=== PATIENT | male | born 1970 | race Two or more races ===

== ENCOUNTER 2020-07-09 01:19 | Inpatient (IN) | payer BC ==
[2020-07-09] VITALS (19 sets, daily range): BP systolic 112–147; BP diastolic 77–109
[~2020-07-09] VITALS: Ht 152.4 cm; Wt 57.1 kg
--- NOTE | 2020-07-09 01:31 | ED.ADGEN ---
General Adult EDM: Chief Complaint: CHEST PAIN HPI: HPI: Patient is a 49 year old brought in by EMS as a STEMI activation. Had "crushing" chest pain starting about 0045 which was about 5 minutes after intercourse with his . Patient states he was also diaphoretic at that time. Denies any use of erectile dysfunction medications, took ibuprofen today but otherwise takes no prescribed medications and has no known medical conditions. Patient never had this type of pain before. Denies any tobacco alcohol drug us e. Denies any history of GI bleeding. On EMS arrival. The pain as about 7-8 out of 10, given 324 mg aspirin and 1 nitroglycerin with pain improving to 5. Twelve-lead showed ST elevation in V3- V^ Review of Systems: Review of Systems: Constitutional: Denies fever or chills. [] Eyes: Denies change in visual acuity. [] HENT: Denies nasal congestion or sore throat. [] Respiratory: Denies cough or shortness of breath. [] Cardiovascular: Chest pain, denies lower extremity edema GI: Denies abdominal pain, nausea, vomiting, bloody stools or diarrhea. [] : Denies dysuria. [] Musculoskeletal: Denies back pain or joint pain. [] Integument: Denies rash. [] Neurologic: Denies headache, focal weakness or sensory changes. [] Endocrine: Denies polyuria or polydipsia. [] Lymphatic: Denies swollen glands. [] Psychiatric: Denies depression or anxiety. [] Current Medications: Current Medications Medications (Trade) Dose Ordered Sig/Gisell Start Time Stop Time Status Last Admin Dose Admin Acetaminophen (Tylenol) 650 mg PRN Q4HRS PRN 07/09/20 02:00 07/09/20 03:37 DC Diphenhydramine HCl (Benadryl) 50 mg STK-MED ONCE 07/09/20 01:54 07/09/20 01:55 DC Famotidine (Pepcid Vial) 20 mg STK-MED ONCE 07/09/20 01:54 07/09/20 01:54 DC Fentanyl Citrate (Fentanyl 2ml Vial) 50 mcg PRN Q1HR PRN 07/09/20 02:00 07/09/20 03:37 DC Heparin Sodium (Porcine) (Heparin Sodium) 4,000 unit 1X ONCE 07/09/20 02:00 07/09/20 02:01 DC 07/09/20 01:37 4,000 UNIT Heparin Sodium/ Dextrose 0 ml @ As Directed STK-MED ONCE 07/09/20 01:35 07/09/20 01:35 DC Heparin Sodium/ Sodium Chloride 1,000 ml @ As Directed STK-MED ONCE 07/09/20 01:35 07/09/20 01:36 DC Iodixanol (Visipaque 320) 100 ml STK-MED ONCE 07/09/20 01:35 07/09/20 01:35 DC Lidocaine HCl (Lidocaine 1% 20ml Vial) 20 ml STK-MED ONCE 07/09/20 01:35 07/09/20 01:35 DC Methylprednisolone Sodium Succinate (SOLU-Medrol 125MG VIAL) 125 mg STK-MED ONCE 07/09/20 01:54 07/09/20 01:54 DC Midazolam HCl (Versed) 2 mg STK-MED ONCE 07/09/20 01:54 07/09/20 01:54 DC Nitroglycerin (Nitrostat) 0.4 mg PRN Q5MIN PRN 07/09/20 02:00 07/09/20 03:38 DC 07/09/20 01:37 0.4 MG Ondansetron HCl (Zofran) 4 mg PRN Q8HRS PRN 07/09/20 02:00 07/10/20 01:59 Sodium Chloride 1,000 ml @ 75 mls/hr [id number] 07/09/20 02:00 07/09/20 03:38 DC 07/09/20 02:00 75 MLS/HR Allergies: Allergies: Allergies Coded Allergies Type Severity Reaction Last Updated Verified shrimp Allergy Severe 07/09/20 Yes Physical Exam: PE: Constitutional: Well developed, well nourished, no acute distress, non-toxic appearance. [] HENT: Normocephalic, atraumatic, bilateral external ears normal, oropharynx moist, no oral exudates, nose normal. [] Eyes: PERRLA, EOMI, conjunctiva normal, no discharge. [] Neck: Normal range of motion, no tenderness, supple, no stridor. [] Cardiovascular:Heart rate regular rhythm, no murmur [] Lungs & Thorax: Bilateral breath sounds clear to auscultation [] Abdomen: Bowel sounds normal, soft, no tenderness, no masses, no pulsatile masses. [] Skin: Warm, dry, no erythema, no rash. [] Back: No tenderness, no CVA tenderness. [] Extremities: No tenderness, no cyanosis, no clubbing, ROM intact, no edema. [] Neurologic: Alert and oriented X 3, normal motor function, normal sensory function, no focal deficits noted. [] Psychologic: Affect normal, judgement normal, mood normal. [] Current Patient Data: Labs: Laboratory Tests Test 07/09/20 01:30 White Blood Count 6.8 x10^3/uL (4.0-11.0) Red Blood Count 4.84 x10^6/uL (4.30-5.70) Hemoglobin 15.0 g/dL (13.0-17.5) Hematocrit 44.6 % (39.0-53.0) Mean Corpuscular Volume 92 fL (79-100) Mean Corpuscular Hemoglobin 31 pg (25-35) Mean Corpuscular Hemoglobin Concent 34 g/dL (31-37) Red Cell Distribution Width 13.2 % (11.5-14.5) Platelet Count 227 x10^3/uL (140-400) Neutrophils (%) (Auto) 35 % (31-73) Lymphocytes (%) (Auto) 53 % (24-48) H Monocytes (%) (Auto) 7 % (0-9) Eosinophils (%) (Auto) 5 % (0-3) H Basophils (%) (Auto) 1 % (0-3) Neutrophils # (Auto) 2.4 x10^3/uL (1.8-7.7) Lymphocytes # (Auto) 3.5 x10^3/uL (1.0-4.8) Monocytes # (Auto) 0.5 x10^3/uL (0.0-1.1) Eosinophils # (Auto) 0.3 x10^3/uL (0.0-0.7) Basophils # (Auto) 0.0 x10^3/uL (0.0-0.2) Prothrombin Time 12.5 SEC (11.7-14.0) Prothrombin Time INR 1.0 (0.8-1.1) Sodium Level 140 mmol/L (136-145) Potassium Level 4.0 mmol/L (3.5-5.1) Chloride Level 106 mmol/L (98-107) Carbon Dioxide Level 24 mmol/L (21-32) Anion Gap 10 (6-14) Blood Urea Nitrogen 21 mg/dL (8-26) Creatinine 0.9 mg/dL (0.7-1.3) Estimated GFR (Cockcroft-Gault) 89.3 BUN/Creatinine Ratio 23 (6-20) H Glucose Level 98 mg/dL (70-99) Calcium Level 8.8 mg/dL (8.5-10.1) Magnesium Level 2.3 mg/dL (1.8-2.4) Total Bilirubin 0.4 mg/dL (0.2-1.0) Aspartate Amino Transferase (AST) 34 U/L (15-37) Alanine Aminotransferase (ALT) 19 U/L (16-63) Alkaline Phosphatase 70 U/L (46-116) Troponin I Quantitative 0.032 ng/mL (0.000-0.055) DC-Wks-V-Type Natriuretic Peptide 16 pg/mL (0-124) Total Protein 7.3 g/dL (6.4-8.2) Albumin 3.4 g/dL (3.4-5.0) Albumin/Globulin Ratio 0.9 (1.0-1.7) L Triglycerides Level 108 mg/dL (0-150) Cholesterol Level 157 mg/dL (0-200) LDL Cholesterol, Calculated 95 mg/dL (0-100) VLDL Cholesterol, Calculated 22 mg/dL (0-40) Non-HDL Cholesterol Calculated 117 mg/dL (0-129) HDL Cholesterol 40 mg/dL (40-60) Cholesterol/HDL Ratio 3.9 Laboratory Tests 07/09/20 01:30 Laboratory Tests 07/09/20 01:30 Vital Signs: Vital Signs Date Time Temp Pulse Resp B/P (MAP) Pulse Ox O2 Delivery O2 Flow Rate FiO2 07/09/20 01:58 16 07/09/20 01:39 58 131/87 (102) 99 Room Air 07/09/20 01:24 97.4 97.4 EKG: EKG: ST elevation in V3 V4, V5, V6, slight possible depression in aVR. Normal axis, no ectopy [] Heart Score: Risk Factors: Risk Factors: DM, Current or recent (<one month) smoker, HTN, HLP, family history of CAD, obesity. Risk Scores: Score 0 - 3: 2.5% MACE over next 6 weeks - Discharge Home Score 4 - 6: 20.3% MACE over next 6 weeks - Admit for Clinical Observation Score 7 - 10: 72.7% MACE over next 6 weeks - Early Invasive Strategies Radiology/Procedures: Radiology/Procedures: [] Course & Med Decision Making: Course & Med Decision Making STEMI activation taken to [facility], given 4000 heparin bolus and lumbar nitroglycerin emergency department [] Dragon Disclaimer: Dragon Disclaimer: This electronic medical record was generated, in whole or in part, using a voice recognition dictation system. Departure Departure Impression: Primary Impression: STEMI (ST elevation myocardial infarction) Disposition: ADMITTED INPT THIS HOSP Admitting Physician: SARI Condition: ESTEPHANIAED VALERIA KAM MD Jul 09, 2020 01:31
[2020-07-09] MEDS ORDERED: IODIXANOL 320 MG/ML 100 ML VIAL. ONE ×4 (01:35→02:36)
[2020-07-09] MEDS ORDERED: LIDOCAINE 1% Multi-Dose 20 ML VIAL. ONE (01:35)
[2020-07-09] MEDS ORDERED: HEPARIN IV ONE (01:35)
[2020-07-09 01:44] LABS: BASO % 1 % (0-3); EOS # 0.3 x10^3/uL (0.0-0.7); EOS % 5 % (0-3); HEMATOCRIT 44.6 % (39.0-53.0); LYMPH # 3.5 x10^3/uL (1.0-4.8); LYMPH % 53 % (24-48); MEAN CORPUSCULAR HEMOGLOBIN 31 pg (25-35); MEAN CORPUSCULAR HGB CONC 34 g/dL (31-37); MEAN CORPUSCULAR VOLUME 92 fL (79-100); MONO # 0.5 x10^3/uL (0.0-1.1); MONO % 7 % (0-9); NEUT # 2.4 x10^3/uL (1.8-7.7); NEUT % 35 % (31-73); PLATELET COUNT 227 x10^3/uL (140-400); RED BLOOD COUNT 4.84 x10^6/uL (4.30-5.70); RED CELL DISTRIBUTION WIDTH 13.2 % (11.5-14.5); WHITE BLOOD COUNT 6.8 x10^3/uL (4.0-11.0)
[2020-07-09] MEDS ORDERED: NITROGLYCERIN SUBLINGUAL 0.4 MG BOTTLE OF 25. SL PRN ×3 (01:45→03:30)
[2020-07-09 01:54] LABS: CALCIUM 8.8 mg/dL (8.5-10.1); CREATININE 0.9 mg/dL (0.7-1.3); GFR 89.3
[2020-07-09] MEDS ORDERED: methylPREDNISolone SOD SUCC PF 125 MG/2 ML VIAL. ONE (01:54)
[2020-07-09] MEDS ORDERED: FAMOTIDINE 20 MG/2 ML VIAL ONE (01:54)
[2020-07-09] MEDS ORDERED: diphenhydrAMINE 50 MG/ML VIAL ONE (01:54)
[2020-07-09] MEDS ORDERED: fentaNYL PF VIAL 100 MCG/2 ML VIAL ONE (01:54)
[2020-07-09] MEDS ORDERED: MIDAZOLAM HCL/PF 2 MG/2 ML VIAL. ONE (01:54)
[2020-07-09 01:56] LABS: PROTHROMBIN TIME PATIENT 12.5 SEC (11.7-14.0)
[2020-07-09 02:00] LABS: ALBUMIN 3.4 g/dL (3.4-5.0); ALBUMIN/GLOBULIN RATIO 0.9 (1.0-1.7); MAGNESIUM 2.3 mg/dL (1.8-2.4); TOTAL BILIRUBIN 0.4 mg/dL (0.2-1.0); TOTAL PROTEIN 7.3 g/dL (6.4-8.2)
[2020-07-09] MEDS ORDERED: ACETAMINOPHEN 325 MG TABLET. PO PRN ×3 (02:00→07:30)
[2020-07-09] MEDS ORDERED: fentaNYL PF VIAL 100 MCG/2 ML VIAL IV PRN ×2 (02:00→03:30)
[2020-07-09] MEDS ORDERED: HEPARIN for IV BOLUS 10,000 UNIT/10 ML VIAL. IV ONE (02:00)
[2020-07-09] MEDS ORDERED: IV NORMAL SALINE 1000ML BAG 1,000 ML IV SCH ×3 (02:00→04:00)
[2020-07-09] MEDS ORDERED: ONDANSETRON PF 4 MG/2 ML VIAL. IV PRN (02:00)
[2020-07-09] MEDS ORDERED: BIVALIRUDIN 250 MG VIAL. IV ONE ×2 (02:08→02:30)
[2020-07-09] MEDS ORDERED: IODIXANOL 320 MG/ML 100 ML VIAL. IART ONE (02:30)
[2020-07-09] MEDS ORDERED: diphenhydrAMINE 50 MG/ML VIAL IVP ONE (02:30)
[2020-07-09] MEDS ORDERED: LIDOCAINE 1% Multi-Dose 20 ML VIAL. INJ ONE (02:30)
[2020-07-09] MEDS ORDERED: FAMOTIDINE 20 MG/2 ML VIAL IVP ONE (02:30)
[2020-07-09] MEDS ORDERED: MIDAZOLAM HCL/PF 2 MG/2 ML VIAL. IV ONE (02:30)
[2020-07-09] MEDS ORDERED: methylPREDNISolone SOD SUCC PF 125 MG/2 ML VIAL. IV ONE (02:30)
[2020-07-09] MEDS ORDERED: fentaNYL PF VIAL 100 MCG/2 ML VIAL IV ONE (02:30)
[2020-07-09] MEDS ORDERED: TICAGRELOR 90 MG TABLET. ONE (02:45)
--- NOTE | 2020-07-09 03:25 | PDOC2 ---
CONSULT Date of Consult Date of Consult DATE: 07/09/20 TIME: 03:17 Reason for Consult Reason for Consult: Chest pain, Possible STEMI Referring Physician Referring Physician: Dr. Ram Identification/Chief Complaint Chief Complaint Chest pain Source Source: Chart review, Patient History of Present Illness Reason for Visit: The patient is a 49 year old male who developed chest pain while in bed. His pain significantly increased associated with nausea and vomiting. Paramedics were called and an EKG showed anterior ST elevation. A STEMI protocol was activated. In the ER the patient continued to have chest pain. An EKG continued to show anterior ST elevation. The patient denied any history of CAD, HTN or HLD. Past Medical History Cardiovascular: No pertinent hx Past Surgical History Past Surgical History: No pertinent history Family History Family History: Heart Disease Social History No ALCOHOL: none Current Problem List Problem List Problems Medical Problems: (1) STEMI (ST elevation myocardial infarction) Status: Acute Current Medications Current Medications Current Medications Nitroglycerin (Nitrostat) 0.4 mg PRN Q5MIN PRN SL CP RATING > 1/10; Start 07/09/20 at 01:45; Stop 07/09/20 at 01:57; Status DC Heparin Sodium (Porcine) (Heparin Sodium) 4,000 unit 1X ONCE IV Last administered on 07/09/20at 01:37; Start 07/09/20 at 02:00; Stop 07/09/20 at 02:01; Status DC Sodium Chloride 1,000 ml @ 1,000 mls/hr Q1H IV ; Start 07/09/20 at 02:00; Stop 07/09/20 at 02:59; Status DC Heparin Sodium/ Dextrose 0 ml @ As Directed STK-MED ONCE IV ; Start 07/09/20 at 01:35; Stop 07/09/20 at 01:35; Status DC Iodixanol (Visipaque 320) 100 ml STK-MED ONCE .ROUTE ; Start 07/09/20 at 01:35; Stop 07/09/20 at 01:35; Status DC Lidocaine HCl (Lidocaine 1% 20ml Vial) 20 ml STK-MED ONCE .ROUTE ; Start 07/09/20 at 01:35; Stop 07/09/20 at 01:35; Status DC Heparin Sodium/ Sodium Chloride 1,000 ml @ As Directed STK-MED ONCE .ROUTE ; Start 07/09/20 at 01:35; Stop 07/09/20 at 01:36; Status DC Methylprednisolone Sodium Succinate (SOLU-Medrol 125MG VIAL) 125 mg STK-MED ONCE .ROUTE ; Start 07/09/20 at 01:54; Stop 07/09/20 at 01:54; Status DC Fentanyl Citrate (Fentanyl 2ml Vial) 100 mcg STK-MED ONCE .ROUTE ; Start 07/09/20 at 01:54; Stop 07/09/20 at 01:54; Status DC Midazolam HCl (Versed) 2 mg STK-MED ONCE .ROUTE ; Start 07/09/20 at 01:54; Stop 07/09/20 at 01:54; Status DC Famotidine (Pepcid Vial) 20 mg STK-MED ONCE .ROUTE ; Start 07/09/20 at 01:54; Stop 07/09/20 at 01:54; Status DC Diphenhydramine HCl (Benadryl) 50 mg STK-MED ONCE .ROUTE ; Start 07/09/20 at 01:54; Stop 07/09/20 at 01:55; Status DC Ondansetron HCl (Zofran) 4 mg PRN Q8HRS PRN IV NAUSEA/VOMITING 1ST CHOICE; Start 07/09/20 at 02:00; Stop 07/10/20 at 01:59 Fentanyl Citrate (Fentanyl 2ml Vial) 50 mcg PRN Q1HR PRN IV SEVERE PAIN 7-10; Start 07/09/20 at 02:00; Stop 07/10/20 at 01:59 Sodium Chloride 1,000 ml @ 75 mls/hr [id number] IV Last administered on 07/09/20at 02:00; Start 07/09/20 at 02:00; Stop 07/10/20 at 01:59 Acetaminophen (Tylenol) 650 mg PRN Q4HRS PRN PO FEVER > 100.3'F; Start 07/09/20 at 02:00; Stop 07/10/20 at 01:59 Nitroglycerin (Nitrostat) 0.4 mg PRN Q5MIN PRN SL CHEST PAIN Last administered on 07/09/20at 01:37; Start 07/09/20 at 02:00; Stop 07/10/20 at 01:59 Bivalirudin (Angiomax) 250 mg STK-MED ONCE IV ; Start 07/09/20 at 02:08; Stop 07/09/20 at 02:08; Status DC Iodixanol (Visipaque 320) 100 ml STK-MED ONCE .ROUTE ; Start 07/09/20 at 02:13; Stop 07/09/20 at 02:13; Status DC Heparin Sodium/ Sodium Chloride (HEPARIN for ARTERIAL LINE FLUSH) 1,000 unit 1X ONCE IART Last administered on 07/09/20at 02:32; Start 07/09/20 at 03:00; Stop 07/09/20 at 03:01; Status DC Heparin Sodium/ Sodium Chloride (HEPARIN for ARTERIAL LINE FLUSH) 1,000 unit 1X ONCE IART Last administered on 07/09/20at 02:30; Start 07/09/20 at 02:30; Stop 07/09/20 at 02:31; Status DC Midazolam HCl (Versed) 2 mg 1X ONCE IV Last administered on 07/09/20at 01:58; Start 07/09/20 at 02:30; Stop 07/09/20 at 02:31; Status DC Fentanyl Citrate (Fentanyl 2ml Vial) 100 mcg 1X ONCE IV Last administered on 07/09/20at 01:58; Start 07/09/20 at 02:30; Stop 07/09/20 at 02:31; Status DC Iodixanol (Visipaque 320) 100 ml 1X ONCE IART Last administered on 07/09/20at 02:50; Start 07/09/20 at 02:30; Stop 07/09/20 at 02:31; Status DC Bivalirudin (Angiomax) 250 mg 1X ONCE IV Last administered on 07/09/20at 02:11; Start 07/09/20 at 02:30; Stop 07/09/20 at 02:31; Status DC Lidocaine HCl (Lidocaine 1% 20ml Vial) 20 ml 1X ONCE INJ Last administered on 07/09/20at 01:57; Start 07/09/20 at 02:30; Stop 07/09/20 at 02:31; Status DC Diphenhydramine HCl (Benadryl) 50 mg 1X ONCE IVP Last administered on 07/09/20at 01:56; Start 07/09/20 at 02:30; Stop 07/09/20 at 02:31; Status DC Methylprednisolone Sodium Succinate (SOLU-Medrol 125MG VIAL) 125 mg 1X ONCE IV Last administered on 07/09/20at 01:56; Start 07/09/20 at 02:30; Stop 07/09/20 at 02:31; Status DC Famotidine (Pepcid Vial) 20 mg 1X ONCE IVP Last administered on 07/09/20at 01:56; Start 07/09/20 at 02:30; Stop 07/09/20 at 02:31; Status DC Iodixanol (Visipaque 320) 100 ml STK-MED ONCE .ROUTE ; Start 07/09/20 at 02:24; Stop 07/09/20 at 02:24; Status DC Iodixanol (Visipaque 320) 100 ml STK-MED ONCE .ROUTE ; Start 07/09/20 at 02:36; Stop 07/09/20 at 02:36; Status DC Ticagrelor (Brilinta) 90 mg STK-MED ONCE .ROUTE ; Start 07/09/20 at 02:45; Stop 07/09/20 at 02:45; Status DC Ticagrelor (Brilinta) 180 mg 1X ONCE PO Last administered on 07/09/20at 03:01; Start 07/09/20 at 03:30; Stop 07/09/20 at 03:31 Allergies Allergies: Coded Allergies: shrimp (Verified Allergy, Severe, 07/09/20) ROS Cardiovascular: yes Chest Pain Gastrointestinal: Yes Nausea, Yes Vomiting Physical Exam General: moderate distress HEENT: Atraumatic Lungs: Clear to auscultation Heart: Regular rate Abdomen: Normal bowel sounds Vitals VITALS Vital Signs Date Time Temp Pulse Resp B/P (MAP) Pulse Ox O2 Delivery O2 Flow Rate FiO2 07/09/20 03:05 64 16 100 Nasal Cannula 2.0 07/09/20 01:39 131/87 (102) 07/09/20 01:24 97.4 97.4 Labs Labs Laboratory Tests Test 07/09/20 01:30 White Blood Count 6.8 x10^3/uL (4.0-11.0) Red Blood Count 4.84 x10^6/uL (4.30-5.70) Hemoglobin 15.0 g/dL (13.0-17.5) Hematocrit 44.6 % (39.0-53.0) Mean Corpuscular Volume 92 fL (79-100) Mean Corpuscular Hemoglobin 31 pg (25-35) Mean Corpuscular Hemoglobin Concent 34 g/dL (31-37) Red Cell Distribution Width 13.2 % (11.5-14.5) Platelet Count 227 x10^3/uL (140-400) Neutrophils (%) (Auto) 35 % (31-73) Lymphocytes (%) (Auto) 53 % (24-48) Monocytes (%) (Auto) 7 % (0-9) Eosinophils (%) (Auto) 5 % (0-3) Basophils (%) (Auto) 1 % (0-3) Neutrophils # (Auto) 2.4 x10^3/uL (1.8-7.7) Lymphocytes # (Auto) 3.5 x10^3/uL (1.0-4.8) Monocytes # (Auto) 0.5 x10^3/uL (0.0-1.1) Eosinophils # (Auto) 0.3 x10^3/uL (0.0-0.7) Basophils # (Auto) 0.0 x10^3/uL (0.0-0.2) Prothrombin Time 12.5 SEC (11.7-14.0) Prothromb Time International Ratio 1.0 (0.8-1.1) Sodium Level 140 mmol/L (136-145) Potassium Level 4.0 mmol/L (3.5-5.1) Chloride Level 106 mmol/L (98-107) Carbon Dioxide Level 24 mmol/L (21-32) Anion Gap 10 (6-14) Blood Urea Nitrogen 21 mg/dL (8-26) Creatinine 0.9 mg/dL (0.7-1.3) Estimated GFR (Cockcroft-Gault) 89.3 BUN/Creatinine Ratio 23 (6-20) Glucose Level 98 mg/dL (70-99) Calcium Level 8.8 mg/dL (8.5-10.1) Magnesium Level 2.3 mg/dL (1.8-2.4) Total Bilirubin 0.4 mg/dL (0.2-1.0) Aspartate Amino Transf (AST/SGOT) 34 U/L (15-37) Alanine Aminotransferase (ALT/SGPT) 19 U/L (16-63) Alkaline Phosphatase 70 U/L (46-116) Troponin I Quantitative 0.032 ng/mL (0.000-0.055) CQ-Zmg-K-Type Natriuretic Peptide 14 pg/mL (0-124) Total Protein 7.3 g/dL (6.4-8.2) Albumin 3.4 g/dL (3.4-5.0) Albumin/Globulin Ratio 0.9 (1.0-1.7) Laboratory Tests Test 07/09/20 01:30 White Blood Count 6.8 x10^3/uL (4.0-11.0) Red Blood Count 4.84 x10^6/uL (4.30-5.70) Hemoglobin 15.0 g/dL (13.0-17.5) Hematocrit 44.6 % (39.0-53.0) Mean Corpuscular Volume 92 fL (79-100) Mean Corpuscular Hemoglobin 31 pg (25-35) Mean Corpuscular Hemoglobin Concent 34 g/dL (31-37) Red Cell Distribution Width 13.2 % (11.5-14.5) Platelet Count 227 x10^3/uL (140-400) Neutrophils (%) (Auto) 35 % (31-73) Lymphocytes (%) (Auto) 53 % (24-48) Monocytes (%) (Auto) 7 % (0-9) Eosinophils (%) (Auto) 5 % (0-3) Basophils (%) (Auto) 1 % (0-3) Neutrophils # (Auto) 2.4 x10^3/uL (1.8-7.7) Lymphocytes # (Auto) 3.5 x10^3/uL (1.0-4.8) Monocytes # (Auto) 0.5 x10^3/uL (0.0-1.1) Eosinophils # (Auto) 0.3 x10^3/uL (0.0-0.7) Basophils # (Auto) 0.0 x10^3/uL (0.0-0.2) Prothrombin Time 12.5 SEC (11.7-14.0) Prothromb Time International Ratio 1.0 (0.8-1.1) Sodium Level 140 mmol/L (136-145) Potassium Level 4.0 mmol/L (3.5-5.1) Chloride Level 106 mmol/L (98-107) Carbon Dioxide Level 24 mmol/L (21-32) Anion Gap 10 (6-14) Blood Urea Nitrogen 21 mg/dL (8-26) Creatinine 0.9 mg/dL (0.7-1.3) Estimated GFR (Cockcroft-Gault) 89.3 BUN/Creatinine Ratio 23 (6-20) Glucose Level 98 mg/dL (70-99) Calcium Level 8.8 mg/dL (8.5-10.1) Magnesium Level 2.3 mg/dL (1.8-2.4) Total Bilirubin 0.4 mg/dL (0.2-1.0) Aspartate Amino Transf (AST/SGOT) 34 U/L (15-37) Alanine Aminotransferase (ALT/SGPT) 19 U/L (16-63) Alkaline Phosphatase 70 U/L (46-116) Troponin I Quantitative 0.032 ng/mL (0.000-0.055) KD-Meo-P-Type Natriuretic Peptide 14 pg/mL (0-124) Total Protein 7.3 g/dL (6.4-8.2) Albumin 3.4 g/dL (3.4-5.0) Albumin/Globulin Ratio 0.9 (1.0-1.7) Assessment/Plan Assessment/Plan 1. Probable STEMI. Treated with ASA and heparin. EKG as above. Emergency cath recommended. Risks and benefits discussed. The patient agreed to proceed. 2. Uncertain lipid panel. Will check in the morning. Thank you for allowing us to participate in the care of your patient. PEDRO VILLANUEVA MD Jul 09, 2020 03:25
[2020-07-09] MEDS ORDERED: ATROPINE 0.5 MG/5 ML DISP.SYRINGE. IV PRN (03:30)
[2020-07-09] MEDS ORDERED: AMIODARONE 150 MG in IV DEXTROSE 5% 100ML 100 ML IV PRN (03:30)
[2020-07-09] MEDS ORDERED: TICAGRELOR 90 MG TABLET. PO ONE (03:30)
[2020-07-09] MEDS ORDERED: 0.9 % SODIUM CHLORIDE 10 ML DISP.SYRIN. IV PRN (03:30)
[2020-07-09] MEDS ORDERED: LIDOCAINE 2% 100 MG/5 ML SYRINGE. IV PRN (03:30)
--- NOTE | 2020-07-09 03:45 | NUR ---
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 Patient alert/oriented x4 but sleepy--denies chest pain, N/V or diaphoresis. Right femoral cath site with folded 4x4 covered with opsite; D/I, soft without S/Sx of hematoma. Patient oriented to unit routine, nursing call light, TV/Bed control, Numeric pain scale, s/sx of bleeding (warmth and wetness at cath site and swelling), need to lie flat until 0700 and POC. Patient verbalized understanding of above.
--- NOTE | 2020-07-09 03:57 | CARD ---
MR#: [id number] Date of Study: 07/09/2020 Ordering Physician: PEDRO REYES, Referring Physician: PEDRO REYES, Tech: CHAS BELLMARINA APPROVED REPORT Procedures Selective coronary angiogram Drug-eluting stent placement to the LAD. The patient is a 49-year-old male who developed chest pain while in bed last evening. The pain incre ased and paramedics were called. EKG by the paramedics suggested anterior ST elevation and a ST elev ated myocardial infarction protocol was activated. In the emergency room the patient continued to padron ve chest pain. His EKG confirmed anterior ST elevation but no significant reciprocal changes. He wa s given heparin and aspirin. A catheterization was recommended. The patient gave consent to cathete rization and a possible interventional procedure. After informed consent was obtained the patient was brought to the heart catheterization lab. The ar ea the right femoral artery was prepared in the usual manner with Betadine, sterile draping and local anesthetic. An 18-gauge needle was used to enter the right femoral artery, a wire placed and a 6 Fr ench sheath placed over the wire. A 6 [place] Jame right diagnostic catheter was used to engage t he right coronary system sequential injections of various views were obtained. A 6 Burkin[place] JL4 diagno stic catheter was used to engage the left system. An initial injection showed a subtotal proximal LA D lesion. We proceeded to revascularize the vessel. Angiomax as per protocol was administered. A 6 [place]kin[place] extra-support 3.5 catheter was used to engage the left system. Initial attempts to cross the lesion were with a PT choice wire. The wire could re ach the lesion but would not cross the lesion despite multiple attempts. A Prowater wire was also un able to cross the lesion. A Whisper wire was then used and was able to cross the lesion. The lesion was predilated with a 2.5 x 15 mm Euphora balloon with 2 inflations at 8 edith for 15 seconds. A 2.75 x 18 Xience Jodee drug-eluting stent was then deployed with 1 inflation at 16 edith for 16 seconds. Residual lesion was 0%. Normal flow was restored. The wire was removed from the patient. The codebender system was then removed. Of note all catheter placements were over a J-wire. Injection of the sh eath showed an acceptable placement of the sheath and it was removed and sealed with an Angio-Seal pr oduct. The patient was then moved to the ICU with resolving chest pain. Findings. Aortic root pressure of 138/90. Coronaries. Left main. The left main had no lesions. Left anterior descending. The LAD had a proximal subtotal lesion. Left circumflex. The left circumflex had a proximal 40 to 50% lesion in obtuse marginal lesion of 50 %. Right coronary artery. The right coronary was a moderately large vessel with a mid 10% lesion. <Conclusion> Severe single-vessel coronary disease with a subtotal proximal LAD lesion. Mild to moderate disease in the remaining vessels. Successful drug-eluting stent placement to the LAD decreasing a subtotal lesion to 0%. Fluoroscopy time 19.3 minutes Dose 48.6 Gycm2 Contrast 286 cc of VISI Sedation time 63 minutes Signed by : Pedro Reyes MD Electronically Approved : 07/09/2020 03:56:46
[2020-07-09 04:27] LABS: CHOLESTEROL/HDL RATIO 3.9
--- NOTE | 2020-07-09 07:18 | PDOC1 ---
History and Physical Date of Admission Date of Admission DATE: 07/09/20 TIME: 06:49 Identification/Chief Complaint Chief Complaint Chest pain Source Source: Chart review, Patient History of Present Illness History of Present Illness Patient's 49-year-old male with no significant past medical history who presents to the ER with complaints of left-sided chest pain. He reports left-sided crushing chest pain, 8/10, that occurred after having intercourse. He reports associated diaphoresis. EMS was contacted and EKG showed apparent anterior ST elevation. He was treated with aspirin and nitroglycerin with some improvement in his pain. Cardiology was consulted emergently by ER for possible coronary intervention. Past Medical History Cardiovascular: No pertinent hx Past Surgical History Past Surgical History: No pertinent history Family History Family History: Heart Disease Social History Smoke: No ALCOHOL: none Drugs: None Current Problem List Problem List Problems Medical Problems: (1) STEMI (ST elevation myocardial infarction) Status: Acute Current Medications Current Medications Current Medications Nitroglycerin (Nitrostat) 0.4 mg PRN Q5MIN PRN SL CP RATING > 1/10; Start 07/09/20 at 01:45; Stop 07/09/20 at 01:57; Status DC Heparin Sodium (Porcine) (Heparin Sodium) 4,000 unit 1X ONCE IV Last administered on 07/09/20at 01:37; Start 07/09/20 at 02:00; Stop 07/09/20 at 02:01; Status DC Sodium Chloride 1,000 ml @ 1,000 mls/hr Q1H IV ; Start 07/09/20 at 02:00; Stop 07/09/20 at 02:59; Status DC Heparin Sodium/ Dextrose 0 ml @ As Directed STK-MED ONCE IV ; Start 07/09/20 at 01:35; Stop 07/09/20 at 01:35; Status DC Iodixanol (Visipaque 320) 100 ml STK-MED ONCE .ROUTE ; Start 07/09/20 at 01:35; Stop 07/09/20 at 01:35; Status DC Lidocaine HCl (Lidocaine 1% 20ml Vial) 20 ml STK-MED ONCE .ROUTE ; Start 07/09/20 at 01:35; Stop 07/09/20 at 01:35; Status DC Heparin Sodium/ Sodium Chloride 1,000 ml @ As Directed STK-MED ONCE .ROUTE ; Start 07/09/20 at 01:35; Stop 07/09/20 at 01:36; Status DC Methylprednisolone Sodium Succinate (SOLU-Medrol 125MG VIAL) 125 mg STK-MED ONCE .ROUTE ; Start 07/09/20 at 01:54; Stop 07/09/20 at 01:54; Status DC Fentanyl Citrate (Fentanyl 2ml Vial) 100 mcg STK-MED ONCE .ROUTE ; Start 07/09/20 at 01:54; Stop 07/09/20 at 01:54; Status DC Midazolam HCl (Versed) 2 mg STK-MED ONCE .ROUTE ; Start 07/09/20 at 01:54; Stop 07/09/20 at 01:54; Status DC Famotidine (Pepcid Vial) 20 mg STK-MED ONCE .ROUTE ; Start 07/09/20 at 01:54; Stop 07/09/20 at 01:54; Status DC Diphenhydramine HCl (Benadryl) 50 mg STK-MED ONCE .ROUTE ; Start 07/09/20 at 01:54; Stop 07/09/20 at 01:55; Status DC Ondansetron HCl (Zofran) 4 mg PRN Q8HRS PRN IV NAUSEA/VOMITING 1ST CHOICE; Start 07/09/20 at 02:00; Stop 07/10/20 at 01:59 Fentanyl Citrate (Fentanyl 2ml Vial) 50 mcg PRN Q1HR PRN IV SEVERE PAIN 7-10; Start 07/09/20 at 02:00; Stop 07/09/20 at 03:37; Status DC Sodium Chloride 1,000 ml @ 75 mls/hr [id number] IV Last administered on 07/09/20at 02:00; Start 07/09/20 at 02:00; Stop 07/09/20 at 03:38; Status DC Acetaminophen (Tylenol) 650 mg PRN Q4HRS PRN PO FEVER > 100.3'F; Start 07/09/20 at 02:00; Stop 07/09/20 at 03:37; Status DC Nitroglycerin (Nitrostat) 0.4 mg PRN Q5MIN PRN SL CHEST PAIN Last administered on 07/09/20at 01:37; Start 07/09/20 at 02:00; Stop 07/09/20 at 03:38; Status DC Bivalirudin (Angiomax) 250 mg STK-MED ONCE IV ; Start 07/09/20 at 02:08; Stop 07/09/20 at 02:08; Status DC Iodixanol (Visipaque 320) 100 ml STK-MED ONCE .ROUTE ; Start 07/09/20 at 02:13; Stop 07/09/20 at 02:13; Status DC Heparin Sodium/ Sodium Chloride (HEPARIN for ARTERIAL LINE FLUSH) 1,000 unit 1X ONCE IART Last administered on 07/09/20at 02:32; Start 07/09/20 at 03:00; Stop 07/09/20 at 03:01; Status DC Heparin Sodium/ Sodium Chloride (HEPARIN for ARTERIAL LINE FLUSH) 1,000 unit 1X ONCE IART Last administered on 07/09/20at 02:30; Start 07/09/20 at 02:30; Stop 07/09/20 at 02:31; Status DC Midazolam HCl (Versed) 2 mg 1X ONCE IV Last administered on 07/09/20at 01:58; Start 07/09/20 at 02:30; Stop 07/09/20 at 02:31; Status DC Fentanyl Citrate (Fentanyl 2ml Vial) 100 mcg 1X ONCE IV Last administered on 07/09/20at 01:58; Start 07/09/20 at 02:30; Stop 07/09/20 at 02:31; Status DC Iodixanol (Visipaque 320) 100 ml 1X ONCE IART Last administered on 07/09/20at 02:50; Start 07/09/20 at 02:30; Stop 07/09/20 at 02:31; Status DC Bivalirudin (Angiomax) 250 mg 1X ONCE IV Last administered on 07/09/20at 02:11; Start 07/09/20 at 02:30; Stop 07/09/20 at 02:31; Status DC Lidocaine HCl (Lidocaine 1% 20ml Vial) 20 ml 1X ONCE INJ Last administered on 07/09/20at 01:57; Start 07/09/20 at 02:30; Stop 07/09/20 at 02:31; Status DC Diphenhydramine HCl (Benadryl) 50 mg 1X ONCE IVP Last administered on 07/09/20at 01:56; Start 07/09/20 at 02:30; Stop 07/09/20 at 02:31; Status DC Methylprednisolone Sodium Succinate (SOLU-Medrol 125MG VIAL) 125 mg 1X ONCE IV Last administered on 07/09/20at 01:56; Start 07/09/20 at 02:30; Stop 07/09/20 at 02:31; Status DC Famotidine (Pepcid Vial) 20 mg 1X ONCE IVP Last administered on 07/09/20at 01:56; Start 07/09/20 at 02:30; Stop 07/09/20 at 02:31; Status DC Iodixanol (Visipaque 320) 100 ml STK-MED ONCE .ROUTE ; Start 07/09/20 at 02:24; Stop 07/09/20 at 02:24; Status DC Iodixanol (Visipaque 320) 100 ml STK-MED ONCE .ROUTE ; Start 07/09/20 at 02:36; Stop 07/09/20 at 02:36; Status DC Ticagrelor (Brilinta) 90 mg STK-MED ONCE .ROUTE ; Start 07/09/20 at 02:45; Stop 07/09/20 at 02:45; Status DC Ticagrelor (Brilinta) 180 mg 1X ONCE PO Last administered on 07/09/20at 03:01; Start 07/09/20 at 03:30; Stop 07/09/20 at 03:31; Status DC Sodium Chloride (Normal Saline Flush) 3 ml QSHIFT PRN IV AFTER MEDS AND BLOOD DRAWS; Start 07/09/20 at 03:30 Sodium Chloride 1,000 ml @ 75 mls/hr [id number] IV ; Start 07/09/20 at 04:00 Aspirin (Ecotrin) 81 mg DAILYWBKFT PO ; Start 07/10/20 at 08:00 Ticagrelor (Brilinta) 90 mg BID PO ; Start 07/10/20 at 09:00 Metoprolol Tartrate (Lopressor) 12.5 mg BID PO ; Start 07/09/20 at 09:00 Lisinopril (Prinivil) 5 mg DAILY PO ; Start 07/09/20 at 09:00 Atorvastatin Calcium (Lipitor) 20 mg QHS PO ; Start 07/09/20 at 21:00 Acetaminophen (Tylenol) 650 mg PRN Q6HRS PRN PO MILD PAIN / TEMP > 100.3'F; Start 07/09/20 at 03:30 Fentanyl Citrate (Fentanyl 2ml Vial) 50 mcg PRN Q1HR PRN IV MODERATE OR SEVERE PAIN; Start 07/09/20 at 03:30 Nitroglycerin (Nitrostat) 0.4 mg PRN Q5MIN PRN SL CHEST PAIN; Start 07/09/20 at 03:30 Amiodarone HCl 150 mg/Dextrose 103 ml @ 600 mls/hr 1X PRN PRN IV FOR VENTRICULAR TACHYCARDIA; Start 07/09/20 at 03:30 Lidocaine HCl (Lidocaine HCl 2% Abboject) 100 mg 1X PRN PRN IV FOR VENTRICULAR TACHYCARDIA; Start 07/09/20 at 03:30 Atropine Sulfate (ATROPINE 0.5mg SYRINGE) 0.5 mg PRN 1X PRN IV BRADYCARDIA; Start 07/09/20 at 03:30 Influenza Virus Vaccine Quadrival (Fluzone Quad [id number] Syringe) 0.5 ml ONCE ONCE VAX IM ; Start 07/09/20 at 09:00; Stop 07/09/20 at 09:01 Allergies Allergies: Coded Allergies: shrimp (Verified Allergy, Severe, 07/09/20) ROS Review of System GENERAL: Diaphoresis. No history of weight change, weakness or fevers. SKIN: No bruising, hair changes or rashes. EYES: No blurred, double or loss of vision. NOSE AND THROAT: No history of nosebleeds, hoarseness or sore throat. HEART: Chest pain. Denies palpitations. LUNGS: Denies cough, hemoptysis, wheezing or shortness of breath. GASTROINTESTINAL: Denies nausea, vomiting, abdominal pain. GENITOURINARY: Denies dysuria, frequency, urgency, hematuria. NEUROLOGIC: Denies history of numbness, tingling, tremor or weakness. PSYCHIATRIC: Denies anxiety, denies depression. ENDOCRINE: No history of heat or cold intolerance, polyuria or polydipsia. EXTREMITIES: Denies muscle weakness, joint pain, pain on walking or stiffness. Physical Exam Physical Exam General: Alert, Oriented X3, Cooperative, No acute distress HEENT: PERRLA, EOMI Lungs: Clear to auscultation, Normal air movement Heart: RRR, no murmurs Cardiovascular: S1, S2 Abdomen: Normal bowel sounds, Soft, No tenderness Extremities: No clubbing, No cyanosis Skin: No rashes, No significant lesion Neuro: Normal speech, Normal tone, Sensation intact Psych/Mental Status: Mental status NL, Mood NL Vitals Vitals Vital Signs Date Time Temp Pulse Resp B/P (MAP) Pulse Ox O2 Delivery O2 Flow Rate FiO2 07/09/20 06:00 70 18 116/81 (93) 98 Room Air 07/09/20 03:30 97.8 97.8 07/09/20 03:05 2.0 Labs Labs Laboratory Tests Test 07/09/20 01:30 White Blood Count 6.8 x10^3/uL (4.0-11.0) Red Blood Count 4.84 x10^6/uL (4.30-5.70) Hemoglobin 15.0 g/dL (13.0-17.5) Hematocrit 44.6 % (39.0-53.0) Mean Corpuscular Volume 92 fL (79-100) Mean Corpuscular Hemoglobin 31 pg (25-35) Mean Corpuscular Hemoglobin Concent 34 g/dL (31-37) Red Cell Distribution Width 13.2 % (11.5-14.5) Platelet Count 227 x10^3/uL (140-400) Neutrophils (%) (Auto) 35 % (31-73) Lymphocytes (%) (Auto) 53 % (24-48) Monocytes (%) (Auto) 7 % (0-9) Eosinophils (%) (Auto) 5 % (0-3) Basophils (%) (Auto) 1 % (0-3) Neutrophils # (Auto) 2.4 x10^3/uL (1.8-7.7) Lymphocytes # (Auto) 3.5 x10^3/uL (1.0-4.8) Monocytes # (Auto) 0.5 x10^3/uL (0.0-1.1) Eosinophils # (Auto) 0.3 x10^3/uL (0.0-0.7) Basophils # (Auto) 0.0 x10^3/uL (0.0-0.2) Prothrombin Time 12.5 SEC (11.7-14.0) Prothromb Time International Ratio 1.0 (0.8-1.1) Sodium Level 140 mmol/L (136-145) Potassium Level 4.0 mmol/L (3.5-5.1) Chloride Level 106 mmol/L (98-107) Carbon Dioxide Level 24 mmol/L (21-32) Anion Gap 10 (6-14) Blood Urea Nitrogen 21 mg/dL (8-26) Creatinine 0.9 mg/dL (0.7-1.3) Estimated GFR (Cockcroft-Gault) 89.3 BUN/Creatinine Ratio 23 (6-20) Glucose Level 98 mg/dL (70-99) Calcium Level 8.8 mg/dL (8.5-10.1) Magnesium Level 2.3 mg/dL (1.8-2.4) Total Bilirubin 0.4 mg/dL (0.2-1.0) Aspartate Amino Transf (AST/SGOT) 34 U/L (15-37) Alanine Aminotransferase (ALT/SGPT) 19 U/L (16-63) Alkaline Phosphatase 70 U/L (46-116) Troponin I Quantitative 0.032 ng/mL (0.000-0.055) IR-Fdy-O-Type Natriuretic Peptide 16 pg/mL (0-124) Total Protein 7.3 g/dL (6.4-8.2) Albumin 3.4 g/dL (3.4-5.0) Albumin/Globulin Ratio 0.9 (1.0-1.7) Triglycerides Level 108 mg/dL (0-150) Cholesterol Level 157 mg/dL (0-200) LDL Cholesterol, Calculated 95 mg/dL (0-100) VLDL Cholesterol, Calculated 22 mg/dL (0-40) Non-HDL Cholesterol Calculated 117 mg/dL (0-129) HDL Cholesterol 40 mg/dL (40-60) Cholesterol/HDL Ratio 3.9 Laboratory Tests Test 07/09/20 01:30 White Blood Count 6.8 x10^3/uL (4.0-11.0) Red Blood Count 4.84 x10^6/uL (4.30-5.70) Hemoglobin 15.0 g/dL (13.0-17.5) Hematocrit 44.6 % (39.0-53.0) Mean Corpuscular Volume 92 fL (79-100) Mean Corpuscular Hemoglobin 31 pg (25-35) Mean Corpuscular Hemoglobin Concent 34 g/dL (31-37) Red Cell Distribution Width 13.2 % (11.5-14.5) Platelet Count 227 x10^3/uL (140-400) Neutrophils (%) (Auto) 35 % (31-73) Lymphocytes (%) (Auto) 53 % (24-48) Monocytes (%) (Auto) 7 % (0-9) Eosinophils (%) (Auto) 5 % (0-3) Basophils (%) (Auto) 1 % (0-3) Neutrophils # (Auto) 2.4 x10^3/uL (1.8-7.7) Lymphocytes # (Auto) 3.5 x10^3/uL (1.0-4.8) Monocytes # (Auto) 0.5 x10^3/uL (0.0-1.1) Eosinophils # (Auto) 0.3 x10^3/uL (0.0-0.7) Basophils # (Auto) 0.0 x10^3/uL (0.0-0.2) Prothrombin Time 12.5 SEC (11.7-14.0) Prothromb Time International Ratio 1.0 (0.8-1.1) Sodium Level 140 mmol/L (136-145) Potassium Level 4.0 mmol/L (3.5-5.1) Chloride Level 106 mmol/L (98-107) Carbon Dioxide Level 24 mmol/L (21-32) Anion Gap 10 (6-14) Blood Urea Nitrogen 21 mg/dL (8-26) Creatinine 0.9 mg/dL (0.7-1.3) Estimated GFR (Cockcroft-Gault) 89.3 BUN/Creatinine Ratio 23 (6-20) Glucose Level 98 mg/dL (70-99) Calcium Level 8.8 mg/dL (8.5-10.1) Magnesium Level 2.3 mg/dL (1.8-2.4) Total Bilirubin 0.4 mg/dL (0.2-1.0) Aspartate Amino Transf (AST/SGOT) 34 U/L (15-37) Alanine Aminotransferase (ALT/SGPT) 19 U/L (16-63) Alkaline Phosphatase 70 U/L (46-116) Troponin I Quantitative 0.032 ng/mL (0.000-0.055) AZ-Iio-H-Type Natriuretic Peptide 16 pg/mL (0-124) Total Protein 7.3 g/dL (6.4-8.2) Albumin 3.4 g/dL (3.4-5.0) Albumin/Globulin Ratio 0.9 (1.0-1.7) Triglycerides Level 108 mg/dL (0-150) Cholesterol Level 157 mg/dL (0-200) LDL Cholesterol, Calculated 95 mg/dL (0-100) VLDL Cholesterol, Calculated 22 mg/dL (0-40) Non-HDL Cholesterol Calculated 117 mg/dL (0-129) HDL Cholesterol 40 mg/dL (40-60) Cholesterol/HDL Ratio 3.9 Images Images Procedures Selective coronary angiogram Drug-eluting stent placement to the LAD. The patient is a 49-year-old male who developed chest pain while in bed last evening. The pain increased and paramedics were called. EKG by the paramedics suggested anterior ST elevation and a ST elevated myocardial infarction protocol was activated. In the emergency room the patient continued to have chest pain. His EKG confirmed anterior ST elevation but no significant reciprocal changes. He was given heparin and aspirin. A catheterization was recommended. The patient gave consent to catheterization and a possible interventional procedure. After informed consent was obtained the patient was brought to the heart catheterization lab. The area the right femoral artery was prepared in the usual manner with Betadine, sterile draping and local anesthetic. An 18-gauge needle was used to enter the right femoral artery, a wire placed and a 6 Jordanian sheath placed over the wire. A 6 Jordanian Jame right diagnostic catheter was used to engage the right coronary system sequential injections of various views were obtained. A 6 Jordanian JL4 diagnostic catheter was used to engage the left system. An initial injection showed a subtotal proximal LAD lesion. We proceeded to revascularize the vessel. Angiomax as per protocol was administered. A 6 Jordanian extra-support 3.5 catheter was used to engage the left system. Initial attempts to cross the lesion were with a PT choice wire. The wire could reach the lesion but would not cross the lesion despite multiple attempts. A Prowater wire was also unable to cross the lesion. A Whisper wire was then used and was able to cross the lesion. The lesion was predilated with a 2.5 x 15 mm Euphora balloon with 2 inflations at 8 edith for 15 seconds. A 2.75 x 18 Xience Jodee drug-eluting stent was then deployed with 1 inflation at 16 edith for 16 seconds. Residual lesion was 0%. Normal flow was restored. The wire was removed from the patient. The guiding system was then removed. Of note all catheter placements were over a J-wire. Injection of the sheath showed an acceptable placement of the sheath and it was removed and sealed with an Angio-Seal product. The patient was then moved to the ICU with resolving chest pain. Findings. Aortic root pressure of 138/90. Coronaries. Left main. The left main had no lesions. Left anterior descending. The LAD had a proximal subtotal lesion. Left circumflex. The left circumflex had a proximal 40 to 50% lesion in obtuse marginal lesion of 50%. Right coronary artery. The right coronary was a moderately large vessel with a mid 10% lesion. <Conclusion> Severe single-vessel coronary disease with a subtotal proximal LAD lesion. Mild to moderate disease in the remaining vessels. Successful drug-eluting stent placement to the LAD decreasing a subtotal lesion to 0%. 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
[2020-07-09] MEDS ORDERED: ZOLPIDEM 5 MG TABLET. PO PRN (07:30)
[2020-07-09] MEDS ORDERED: BISACODYL 10 MG SUPP.RECT. PR PRN (07:30)
[2020-07-09] MEDS ORDERED: MORPHINE SULFATE 2 MG/ML VIAL. IV PRN (07:30)
[2020-07-09] MEDS ORDERED: MAGNESIUM HYDROXIDE 2,400 MG/30 ML ORAL.SUSP. PO PRN (07:30)
[2020-07-09] MEDS ORDERED: ONDANSETRON PF 4 MG/2 ML VIAL. IVP PRN (07:30)
[2020-07-09] MEDS ORDERED: NAPR220C4 PO (07:40)
[2020-07-09] MEDS ORDERED: FLU VACC QS 2020-21(6MOS+)/PF 0.5 ML SYRINGE. VAX IM ONE (09:00)
[2020-07-09] MEDS: HEPARIN for SUB-Q USE 5,000 UNIT/ML VIAL. SQ SCH ×2 (09:00→21:53)
--- NOTE | 2020-07-09 09:22 | EKG ---
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
[2020-07-09] MEDS: METOPROLOL TART IMMED RELEASE 25 MG TABLET. PO SCH ×2 (10:35→21:46)
[2020-07-09] MEDS: LISINOPRIL 5 MG TABLET. PO SCH (10:36)
--- NOTE | 2020-07-09 13:33 | NUR ---
Have reviewed and agree with documentation completed by technology internship and made changes as needed/appropriate
--- NOTE | 2020-07-09 13:53 | NUR ---
Patient to transfer to room 208. Telephone report given to Svitlana Decker. Patient belongings with patient at time of transfer, at bedside. Paged transportation. Will monitor.
--- NOTE | 2020-07-09 16:08 | NUR ---
SS following for discharge planning. SS reviewed pt chart and discussed with pt RN. Pt is from home with spouse and is currently on room air. Pt had heart cath on 07/09/2020. SS will continue to follow for discharge planning.
--- NOTE | 2020-07-09 16:28 | CARD ---
MR#: [id number] Date of Study: 07/09/2020 Ordering Physician: PEDRO VILLANUEVA, Referring Physician: PEDRO VILLANUEVA, Tech: Dena Farrar [facility] APPROVED REPORT EXAM: Two-dimensional and M-mode echocardiogram with Doppler and color Doppler. Other Information Quality : GoodHR: 73bpm Rhythm : NSR INDICATION STEMI status post PCI. 2D DIMENSIONS RVDd3.4 (2.9-3.5cm)IVSd0.9 (0.7-1.1cm) Aortic Root(2D)3.4 (2.0-3.7cm)LVDd4.6 (3.9-5.9cm) LVOT Diameter1.9 (1.8-2.4cm)PWd0.8 (0.7-1.1cm) LVDs3.6 (2.5-4.0cm)FS (%) 21.7 % SV42.0 mlLVEF(%)44.1 (>50%) Aortic Valve AoV Peak Home.108.6cm/Mirella Peak GR.4.7mmHg LVOT Peak Home.102.6cm/sAVA (VMAX)2.76cm2 Mitral Valve MV E Egwvdaid57.7cm/sMV DECEL [id number] MV A Bdrusxsy25.2cm/sE/A Ratio1.3 MV A Cxfkwaou53dz Pulmonary Valve PV Peak Umlhdlvp37.3cm/s Tricuspid Valve TR P. Fbvmybkj197il/sRAP PBFLGZWN5pqAw TR Peak Gr.75lsXlFJVK90diQw Pulmonary Vein S1 Mnbgerzq68.5cm/sD2 Swmoxhdy28.6cm/s PVa njxzedjs535tisk LEFT VENTRICLE The left ventricle is normal size. There is normal left ventricular wall thickness. Hypokinesis of mi d to distal anterior and anteroseptal angel and the entire apical wall. The Ejection Fraction is 35-4 0%. Transmitral Doppler flow pattern is Grade II-pseudonormal filling dynamics. RIGHT VENTRICLE The right ventricle is normal size. The right ventricular systolic function is normal. ATRIA The left atrium size is normal. The right atrium size is normal. The interatrial septum is intact wit h no evidence for an atrial septal defect or patent foramen ovale as noted on 2-D or Doppler imaging. AORTIC VALVE The aortic valve is normal in structure and function. No aortic regurgitation. No aortic valvular sharmila nosis. MITRAL VALVE The mitral valve is normal in structure and function. There is no mitral valve stenosis. Mild mitral regurgitation. TRICUSPID VALVE The tricuspid valve is normal in structure and function. Mild tricuspid regurgitation. The PA pressur e was estimated at 25-30 mmHg. PULMONIC VALVE The pulmonic valve is not well visualized. No pulmonic valvular regurgitation. GREAT VESSELS The aortic root is normal in size. The ascending aorta is not well seen. The IVC is normal in size an d collapses >50% with inspiration. PERICARDIAL EFFUSION There is no evidence of significant pericardial effusion. Critical Notification Critical Value: No <Conclusion> Hypokinesis of mid to distal anterior and anteroseptal angel and the entire apical wall. The Ejection Fraction is 35-40%. Transmitral Doppler flow pattern is Grade II-pseudonormal filling dynamics. Mild mitral regurgitation. Mild tricuspid regurgitation. The PA pressure was estimated at 25-30 mmHg. There is no evidence of significant pericardial effusion. Signed by : Johnie Armenta, Electronically Approved : 07/09/2020 16:28:07
[2020-07-09] MEDS ORDERED: ATORVASTATIN CALCIUM 20 MG TABLET PO SCH (21:00)
[2020-07-09] MEDS: ATORVASTATIN CALCIUM 40 MG TABLET. PO SCH (21:46)
[2020-07-10 02:43] VITALS: BP 113/67
[2020-07-10 07:13] VITALS: BP 104/71
[2020-07-10 08:02] LABS: BASO % 0 % (0-3); CALCIUM 9.1 mg/dL (8.5-10.1); CREATININE 1.1 mg/dL (0.7-1.3); EOS % 0 % (0-3); GFR 70.9; HEMATOCRIT 45.6 % (39.0-53.0); HEMOGLOBIN 15.6 g/dL (13.0-17.5); LYMPH # 1.7 x10^3/uL (1.0-4.8); LYMPH % 19 % (24-48); MEAN CORPUSCULAR HEMOGLOBIN 31 pg (25-35); MEAN CORPUSCULAR HGB CONC 34 g/dL (31-37); MEAN CORPUSCULAR VOLUME 91 fL (79-100); MONO # 0.7 x10^3/uL (0.0-1.1); MONO % 8 % (0-9); NEUT # 6.5 x10^3/uL (1.8-7.7); NEUT % 73 % (31-73); PLATELET COUNT 230 x10^3/uL (140-400); POTASSIUM 3.4 mmol/L (3.5-5.1); RED BLOOD COUNT 4.99 x10^6/uL (4.30-5.70); RED CELL DISTRIBUTION WIDTH 13.2 % (11.5-14.5); WHITE BLOOD COUNT 8.9 x10^3/uL (4.0-11.0)
[2020-07-10] MEDS: TICAGRELOR 90 MG TABLET. PO SCH ×2 (08:48→21:00)
[2020-07-10] MEDS: ASPIRIN ENTERIC COATED 81 MG TABLET.DR. PO SCH (08:49)
[2020-07-10] MEDS: LISINOPRIL 5 MG TABLET. PO SCH (08:49)
[2020-07-10] MEDS: METOPROLOL TART IMMED RELEASE 25 MG TABLET. PO SCH (08:50)
[2020-07-10] MEDS: HEPARIN for SUB-Q USE 5,000 UNIT/ML VIAL. SQ SCH ×2 (08:54→21:00)
[2020-07-10 10:41] VITALS: BP 106/69
--- NOTE | 2020-07-10 12:11 | NUR ---
SS following up with discharge planning. SS reviewed pt chart and discussed with pt RN. Pt is currently on room air. Pt had heart cath on 07/09/2020. Possible discharge to home today. SS will continue to follow for discharge planning.
--- NOTE | 2020-07-10 12:47 | PDOC ---
[facility] PROGRESS NOTE Date of Service DOS: DATE: 07/10/20 TIME: 12:42 Chief Complaint Chief Complaint STEMI Systolic heart failure Plan: Patient treated with aspirin and heparin Cardiology consulted in the ER; Patient taken emergently to the [facility] Inspector Drug-eluting stent placed to LAD He will be discharged on dual antiplatelet therapy, statin, and beta-azra FEN - Cardiac diet PPX - Heparin FULL CODE Dispo - inpatient for above History of Present Illness History of Present Illness Patient's 49-year-old male with no significant past medical history who presents to the ER with complaints of left-sided chest pain. He reports left-sided crushing chest pain, 03/10, that occurred after having intercourse. He reports associated diaphoresis. EMS was contacted and EKG showed apparent anterior ST elevation. He was treated with aspirin and nitroglycerin with some improvement in his pain. Cardiology was consulted emergently by ER for possible coronary intervention. 07/10: Patient evaluated bedside. He had echocardiogram yesterday showing hypokinesis of mid to distal anterior and anteroseptal angel and the entire apical wall and 35-40%. He denies any chest pain or shortness of breath. Anticipate discharge soon, pending any further cardiology recommendations. Greater than 30 minutes was spent managing discharge this patient. Vitals/I&O Vitals/I&O: Vital Signs Date Time Temp Pulse Resp B/P (MAP) Pulse Ox O2 Delivery O2 Flow Rate FiO2 07/10/20 10:41 97.8 65 16 106/69 (81) 97 Room Air 97.8 I & O 07/09/20 07/09/20 07/10/20 15:00 23:00 07:00 Intake Total 960 ml 480 ml 0 ml Output Total 300 ml 300 ml Balance 660 ml 180 ml 0 ml Physical Exam General: Alert, No acute distress Heart: Regular rate Abdomen: Normal bowel sounds Extremities: No clubbing, No cyanosis Skin: No rashes Labs Labs: Laboratory Tests Test 07/09/20 13:30 07/10/20 06:40 Troponin I Quantitative 41.855 ng/mL (0.000-0.055) White Blood Count 8.9 x10^3/uL (4.0-11.0) Red Blood Count 4.99 x10^6/uL (4.30-5.70) Hemoglobin 15.6 g/dL (13.0-17.5) Hematocrit 45.6 % (39.0-53.0) Mean Corpuscular Volume 91 fL (79-100) Mean Corpuscular Hemoglobin 31 pg (25-35) Mean Corpuscular Hemoglobin Concent 34 g/dL (31-37) Red Cell Distribution Width 13.2 % (11.5-14.5) Platelet Count 230 x10^3/uL (140-400) Neutrophils (%) (Auto) 73 % (31-73) Lymphocytes (%) (Auto) 19 % (24-48) Monocytes (%) (Auto) 8 % (0-9) Eosinophils (%) (Auto) 0 % (0-3) Basophils (%) (Auto) 0 % (0-3) Neutrophils # (Auto) 6.5 x10^3/uL (1.8-7.7) Lymphocytes # (Auto) 1.7 x10^3/uL (1.0-4.8) Monocytes # (Auto) 0.7 x10^3/uL (0.0-1.1) Eosinophils # (Auto) 0.0 x10^3/uL (0.0-0.7) Basophils # (Auto) 0.0 x10^3/uL (0.0-0.2) Sodium Level 142 mmol/L (136-145) Potassium Level 3.4 mmol/L (3.5-5.1) Chloride Level 106 mmol/L (98-107) Carbon Dioxide Level 26 mmol/L (21-32) Anion Gap 10 (6-14) Blood Urea Nitrogen 21 mg/dL (8-26) Creatinine 1.1 mg/dL (0.7-1.3) Estimated GFR (Cockcroft-Gault) 70.9 Glucose Level 103 mg/dL (70-99) Calcium Level 9.1 mg/dL (8.5-10.1) Review of Systems Review of Systems: Denies chest pain, denies shortness of breath, denies fever. Assessment and Plan Assessmemt and Plan Problems Medical Problems: (1) STEMI (ST elevation myocardial infarction) Status: Acute Comment Review of Relevant I have reviewed the following items virgie (where applicable) has been applied. Medications: Current Medications Medications (Trade) Dose Ordered Sig/Gisell Route PRN Reason Start Time Stop Time Status Last Admin Dose Admin Aspirin (Ecotrin) 81 mg DAILYWBKFT PO 07/10/20 08:00 07/10/20 08:49 Ticagrelor (Brilinta) 90 mg BID PO 07/10/20 09:00 07/10/20 08:48 Atorvastatin Calcium (Lipitor) 40 mg QHS PO 07/09/20 21:00 07/09/20 21:46 Justifications for Admission Other Justification STEMI ANA LOPEZ MD Jul 10, 2020 12:46
--- NOTE | 2020-07-10 13:53 | PDOC ---
JANAE DE OLIVEIRA MANAGER CASINO 07/10/20 1353: CARDIO Progress Notes Date and Time Date of Service 07/10/20 Time of Evaluation 1310 Subjective Subjective: No Chest Pain, No shortness of breath, No Palpitations Vitals Vitals Vital Signs Date Time Temp Pulse Resp B/P (MAP) Pulse Ox O2 Delivery O2 Flow Rate FiO2 07/10/20 10:41 97.8 65 16 106/69 (81) 97 Room Air 97.8 Weight Weight [ ] Input and Output Intake and Output Intake and Output 07/10/20 07:00 Intake Total 1440 ml Output Total 600 ml Balance 840 ml Intake Oral 1440 ml Output Urine Total 600 ml Laboratory Labs Laboratory Tests Test 07/10/20 06:40 White Blood Count 8.9 x10^3/uL (4.0-11.0) Red Blood Count 4.99 x10^6/uL (4.30-5.70) Hemoglobin 15.6 g/dL (13.0-17.5) Hematocrit 45.6 % (39.0-53.0) Mean Corpuscular Volume 91 fL (79-100) Mean Corpuscular Hemoglobin 31 pg (25-35) Mean Corpuscular Hemoglobin Concent 34 g/dL (31-37) Red Cell Distribution Width 13.2 % (11.5-14.5) Platelet Count 230 x10^3/uL (140-400) Neutrophils (%) (Auto) 73 % (31-73) Lymphocytes (%) (Auto) 19 % (24-48) Monocytes (%) (Auto) 8 % (0-9) Eosinophils (%) (Auto) 0 % (0-3) Basophils (%) (Auto) 0 % (0-3) Neutrophils # (Auto) 6.5 x10^3/uL (1.8-7.7) Lymphocytes # (Auto) 1.7 x10^3/uL (1.0-4.8) Monocytes # (Auto) 0.7 x10^3/uL (0.0-1.1) Eosinophils # (Auto) 0.0 x10^3/uL (0.0-0.7) Basophils # (Auto) 0.0 x10^3/uL (0.0-0.2) Sodium Level 142 mmol/L (136-145) Potassium Level 3.4 mmol/L (3.5-5.1) Chloride Level 106 mmol/L (98-107) Carbon Dioxide Level 26 mmol/L (21-32) Anion Gap 10 (6-14) Blood Urea Nitrogen 21 mg/dL (8-26) Creatinine 1.1 mg/dL (0.7-1.3) Estimated GFR (Cockcroft-Gault) 70.9 Glucose Level 103 mg/dL (70-99) Calcium Level 9.1 mg/dL (8.5-10.1) Physical Exam HEENT: Neck Supple W Full Motion Chest: Symmetric LUNGS: Clear to Auscultation Heart: RRR Abdomen: Soft N/T Extremities: No Edema, Other (bilateral neurovascular status intact) Neurology: alert, oriented, follow commands Assessment Assessment 1. STEMI 2. CAD; s/p PCI/ELMER to the proximal LAD. Tolerated well 3. Chronic systolic CHF; appears compensated 4. ICM; echo showed LVEF 35-40%. Recommendations Risk stratification modification Secondary prevention measures including DAPT with ASA/Brilinta and high dose statin therapy HF optimization with lisinopril and metoprolol. Will convert metoprolol to long- acting Will re-evaluate LVEF with echo on an outpatient basis in 3 months Cardiac rehab referral Will monitor overnight and plan for discharge tomorrow Follow up in our office with Dr. Villanueva as scheduled Justicifation of Admission Dx: Justifications for Admission: Justification of Admission Dx: Yes [place]: Acute STEMI PEDRO VILLANUEVA MD 07/10/20 1725: CARDIO Progress Notes Assessment Assessment Patient seen and examined STEMI. Stent placement to a subtotal proximal LAD occlusion. Echocardiogram shows decreased ejection fraction of 35 to 40% in the distribution of the LAD. Patient is doing well and increasing activity. We will continue present treatme nts. Increase activity further today. Anticipate discharge tomorrow. Stable heart failure. Continuing treatment with beta-blockers and FREDY inhibitor's. Repeat echocardiogram in 3 months. JANAE DE OLIVEIRA APRN Jul 10, 2020 13:53 EPDRO VILLANUEVA MD Jul 10, 2020 17:25
[2020-07-10] MEDS ORDERED: TICA90TA PO (13:58)
[2020-07-10] MEDS ORDERED: ATOR40TA59 PO (13:58)
[2020-07-10] MEDS ORDERED: LISI-338 PO (13:58)
[2020-07-10] MEDS ORDERED: METO-239 PO (13:58)
[2020-07-10] MEDS ORDERED: ASPI-886 PO (13:58)
[2020-07-10] MEDS ORDERED: NITR0.4T24 SL (13:58)
[2020-07-10 14:34] VITALS: BP 106/77
[2020-07-10 19:00] VITALS: BP 109/61
[2020-07-10] MEDS: ATORVASTATIN CALCIUM 40 MG TABLET. PO SCH (21:00)
[2020-07-10 22:44] VITALS: BP 128/75
[2020-07-11 02:44] VITALS: BP 106/70
[2020-07-11 07:00] VITALS: BP 104/54
[2020-07-11] MEDS: ASPIRIN ENTERIC COATED 81 MG TABLET.DR. PO SCH (08:39)
[2020-07-11] MEDS: TICAGRELOR 90 MG TABLET. PO SCH (08:39)
[2020-07-11] MEDS: LISINOPRIL 5 MG TABLET. PO SCH (08:40)
[2020-07-11] MEDS ORDERED: METOPROLOL SUCC 24HR ER 25 MG TAB.ER.24H. PO SCH (09:00)
[2020-07-11 11:00] VITALS: BP 108/71
--- NOTE | 2020-07-11 11:22 | PDOC ---
[facility] PROGRESS NOTE Date of Service DOS: DATE: 07/11/20 TIME: : Chief Complaint Chief Complaint STEMI Systolic heart failure Plan: Patient treated with aspirin and heparin Cardiology consulted in the ER; Patient taken emergently to the Multi Purpose Machine Operator Drug-eluting stent placed to LAD He will be discharged on dual antiplatelet therapy, statin, and beta-azra FEN - Cardiac diet PPX - Heparin FULL CODE Dispo - inpatient for above History of Present Illness History of Present Illness Patient's 49-year-old male with no significant past medical history who presents to the ER with complaints of left-sided chest pain. He reports left-sided crushing chest pain, 03/10, that occurred after having intercourse. He reports associated diaphoresis. EMS was contacted and EKG showed apparent anterior ST elevation. He was treated with aspirin and nitroglycerin with some improvement in his pain. Cardiology was consulted emergently by ER for possible coronary intervention. 07/10: Patient evaluated bedside. He had echocardiogram yesterday showing hypokinesis of mid to distal anterior and anteroseptal angel and the entire apical wall and 35-40%. He denies any chest pain or shortness of breath. Anticipate discharge soon, pending any further cardiology recommendations. 07/11: Patient seen and evaluated with at bedside. He is feeling well today, denies chest pain or shortness of breath. Answered questions, provided reassurance, will discharge on dual antiplatelet therapy, statin, beta-azra, FREDY. Greater than 30 minutes was spent in the management of patient's discharge. Vitals/I&O Vitals/I&O: Vital Signs Date Time Temp Pulse Resp B/P (MAP) Pulse Ox O2 Delivery O2 Flow Rate FiO2 07/11/20 08:40 79 106/70 07/11/20 07:40 Room Air 07/11/20 07:00 97.9 18 97 97.9 I & O 07/10/20 07/10/20 07/11/20 15:00 23:00 07:00 Intake Total 240 ml 1040 ml 0 ml Output Total 100 ml Balance 240 ml 940 ml 0 ml Physical Exam General: Alert, No acute distress Heart: Regular rate Abdomen: Normal bowel sounds Extremities: No clubbing, No cyanosis Skin: No rashes Review of Systems Review of Systems: Denies chest pain, denies shortness of breath, denies nausea. Assessment and Plan Assessmemt and Plan Problems Medical Problems: (1) STEMI (ST elevation myocardial infarction) Status: Acute Comment Review of Relevant I have reviewed the following items virgie (where applicable) has been applied. Medications: Current Medications Medications (Trade) Dose Ordered Sig/Gisell Route PRN Reason Start Time Stop Time Status Last Admin Dose Admin Metoprolol Succinate (Toprol Xl) 25 mg DAILY PO 07/11/20 09:00 07/11/20 08:40 Justifications for Admission Other Justification STEMI ANA LOPEZ MD Jul 11, 2020 11:22
--- NOTE | 2020-07-11 11:32 | PDOC3 ---
Discharge Summary Visit Information Date of Admission: Jul 09, 2020 Date of Discharge: Jul 11, 2020 Final Diagnosis Problems Medical Problems: (1) STEMI (ST elevation myocardial infarction) Status: Acute Brief Hospital Course Allergies Allergies Coded Allergies Type Severity Reaction Last Updated Verified shrimp Allergy Severe 07/09/20 Yes Vital Signs Vital Signs Date Time Temp Pulse Resp B/P (MAP) Pulse Ox O2 Delivery O2 Flow Rate FiO2 07/11/20 08:40 79 106/70 07/11/20 07:40 Room Air 07/11/20 07:00 97.9 18 97 97.9 Lab Results Laboratory Tests Test 07/09/20 13:30 07/10/20 06:40 Troponin I Quantitative 41.855 ng/mL (0.000-0.055) White Blood Count 8.9 x10^3/uL (4.0-11.0) Red Blood Count 4.99 x10^6/uL (4.30-5.70) Hemoglobin 15.6 g/dL (13.0-17.5) Hematocrit 45.6 % (39.0-53.0) Mean Corpuscular Volume 91 fL (79-100) Mean Corpuscular Hemoglobin 31 pg (25-35) Mean Corpuscular Hemoglobin Concent 34 g/dL (31-37) Red Cell Distribution Width 13.2 % (11.5-14.5) Platelet Count 230 x10^3/uL (140-400) Neutrophils (%) (Auto) 73 % (31-73) Lymphocytes (%) (Auto) 19 % (24-48) Monocytes (%) (Auto) 8 % (0-9) Eosinophils (%) (Auto) 0 % (0-3) Basophils (%) (Auto) 0 % (0-3) Neutrophils # (Auto) 6.5 x10^3/uL (1.8-7.7) Lymphocytes # (Auto) 1.7 x10^3/uL (1.0-4.8) Monocytes # (Auto) 0.7 x10^3/uL (0.0-1.1) Eosinophils # (Auto) 0.0 x10^3/uL (0.0-0.7) Basophils # (Auto) 0.0 x10^3/uL (0.0-0.2) Sodium Level 142 mmol/L (136-145) Potassium Level 3.4 mmol/L (3.5-5.1) Chloride Level 106 mmol/L (98-107) Carbon Dioxide Level 26 mmol/L (21-32) Anion Gap 10 (6-14) Blood Urea Nitrogen 21 mg/dL (8-26) Creatinine 1.1 mg/dL (0.7-1.3) Estimated GFR (Cockcroft-Gault) 70.9 Glucose Level 103 mg/dL (70-99) Calcium Level 9.1 mg/dL (8.5-10.1) Brief Hospital Course Mr. Steele is a 49 old male who presented with STEMI. Patient was taken emergently to the cardiac Inventory Representative and had stent placement to a subtotal proximal LAD occlusion. He had echocardiogram showing decreased ejection fraction of 35 to 40% in the distribution of the LAD. Patient did well with increasing activity. Will discharge with appropriate post PCI and heart failure medications. Repeat echocardiogram in 3 months. Assessment Assessment STEMI Acute on chronic heart failure Discharge Information Condition at Discharge: Stable Follow Up: Weeks Disposition/Orders: D/C to Home Scheduled Aspirin (Aspirin Ec) 81 Mg Tablet.dr, 81 MG PO DAILYWBKFT for CAD for 30 Days, #30 Ref 3 Prescribed by: JANAE DE OLIVEIRA APRN on 07/10/20 1358 Atorvastatin Calcium (Atorvastatin Calcium) 40 Mg Tablet, 40 MG PO QHS for CAD for 30 Days, #30 Ref 3 Prescribed by: JANAE DE OLIVEIRA APRN on 07/10/20 1358 Lisinopril (Lisinopril) 5 Mg Tablet, 5 MG PO DAILY for CHF for 30 Days, #30 Ref 3 Prescribed by: JANAE DE OLIVEIRA APRN on 07/10/20 1358 Metoprolol Succinate (Metoprolol Succinate ( Xl )) 25 Mg Tab.er.24h, 1 TAB PO DAILY for Heart for 30 Days, #30 Ref 3 Prescribed by: JANAE DE OLIVEIRA APRN on 07/10/20 1358 Ticagrelor (Brilinta) 90 Mg Tablet, 90 MG PO BID for CAD for 30 Days, #60 Ref 3 Prescribed by: JANAE DE OLIVEIRA APRN on 07/10/20 1358 Scheduled PRN Nitroglycerin (Nitrostat) 0.4 Mg Tab.subl, 0.4 MG SL PRN Q5MIN PRN for CHEST PAIN for 30 Days, #1 Ref 1 Prescribed by: JANAE DE OLIVEIRA APRN on 07/10/20 1358 Discontinued Medications Naproxen Sodium (Aleve) 220 Mg Capsule, 220 MG PO BID for Pain, (Reported) Entered as Reported by: WU DIAZ on 07/09/20739 Last Taken: UNKNOWN on Unknown Date & Time Last Action: New Order on 07/09/20739 by WU DIAZ Justicifation of Admission Dx: Justifications for Admission: Justification of Admission Dx: Yes [place]: Acute STEMI ANA LOPEZ MD Jul 11, 2020 11:32
--- NOTE | 2020-07-11 11:50 | NUR ---
SS following up with discharge planning. SS reviewed pt chart and discussed with pt RN. Pt is currently on room air. Discharge order on the chart for home with self care.
--- NOTE | 2020-07-11 13:35 | NUR ---
Discharge Note: PARTHAAGATHA [place] Discharge instructions and discharge home medications reviewed with Patient and a copy given. All questions have been answered and understanding verbalized. The following instructions and handouts were given: follow up, cardiac rehab, medications, and discharge instructions. Discontinued lines and drains: peripheral IV discontinued. Patient discharged to home via wheelchair accompanied by spouse.
--- NOTE | 2020-07-11 14:03 | PDOC ---
PROGRESS NOTES Date of Service DATE: 07/11/20 TIME: 14:02 Subjective Subjective Patient seen and examined Objective Objective Vital Signs Date Time Temp Pulse Resp B/P (MAP) Pulse Ox O2 Delivery O2 Flow Rate FiO2 07/11/20 11:00 97.6 76 18 108/71 (83) 97 Room Air 97.6 07/09/20 03:05 2.0 Intake and Output 07/11/20 07:00 Intake Total 1280 ml Output Total 100 ml Balance 1180 ml Intake Oral 1280 ml Output Urine Total 100 ml Physical Exam Abdomen: Normal bowel sounds Heart: Regular rate General: No acute distress Lungs: Clear to auscultation Assessment Assessment Problems Medical Problems: (1) STEMI (ST elevation myocardial infarction) Status: Acute STEMI. Stent placement to a subtotal proximal LAD occlusion. Echocardiogram shows decreased ejection fraction of 35 to 40% in the distribution of the LAD. Patient is doing well. We will continue present treatments. Patient may go home from a cardiac viewpoint. We will follow up with a phone call on Tuesday. Stable heart failure. Continuing treatment with beta-blockers and FREDY inhibitor's. Repeat echocardiogram in 3 months. Comment Review of Relevant I have reviewed the following items virgie (where applicable) has been applied. Labs Laboratory Tests Test 07/10/20 06:40 White Blood Count 8.9 x10^3/uL (4.0-11.0) Red Blood Count 4.99 x10^6/uL (4.30-5.70) Hemoglobin 15.6 g/dL (13.0-17.5) Hematocrit 45.6 % (39.0-53.0) Mean Corpuscular Volume 91 fL (79-100) Mean Corpuscular Hemoglobin 31 pg (25-35) Mean Corpuscular Hemoglobin Concent 34 g/dL (31-37) Red Cell Distribution Width 13.2 % (11.5-14.5) Platelet Count 230 x10^3/uL (140-400) Neutrophils (%) (Auto) 73 % (31-73) Lymphocytes (%) (Auto) 19 % (24-48) Monocytes (%) (Auto) 8 % (0-9) Eosinophils (%) (Auto) 0 % (0-3) Basophils (%) (Auto) 0 % (0-3) Neutrophils # (Auto) 6.5 x10^3/uL (1.8-7.7) Lymphocytes # (Auto) 1.7 x10^3/uL (1.0-4.8) Monocytes # (Auto) 0.7 x10^3/uL (0.0-1.1) Eosinophils # (Auto) 0.0 x10^3/uL (0.0-0.7) Basophils # (Auto) 0.0 x10^3/uL (0.0-0.2) Sodium Level 142 mmol/L (136-145) Potassium Level 3.4 mmol/L (3.5-5.1) Chloride Level 106 mmol/L (98-107) Carbon Dioxide Level 26 mmol/L (21-32) Anion Gap 10 (6-14) Blood Urea Nitrogen 21 mg/dL (8-26) Creatinine 1.1 mg/dL (0.7-1.3) Estimated GFR (Cockcroft-Gault) 70.9 Glucose Level 103 mg/dL (70-99) Calcium Level 9.1 mg/dL (8.5-10.1) Medications Current Medications Nitroglycerin (Nitrostat) 0.4 mg PRN Q5MIN PRN SL CP RATING > 1/10; Start 07/09/20 at 01:45; Stop 07/09/20 at 01:57; Status DC Heparin Sodium (Porcine) (Heparin Sodium) 4,000 unit 1X ONCE IV Last administered on 07/09/20at 01:37; Start 07/09/20 at 02:00; Stop 07/09/20 at 02:01; Status DC Sodium Chloride 1,000 ml @ 1,000 mls/hr Q1H IV ; Start 07/09/20 at 02:00; Stop 07/09/20 at 02:59; Status DC Heparin Sodium/ Dextrose 0 ml @ As Directed STK-MED ONCE IV ; Start 07/09/20 at 01:35; Stop 07/09/20 at 01:35; Status DC Iodixanol (Visipaque 320) 100 ml STK-MED ONCE .ROUTE ; Start 07/09/20 at 01:35; Stop 07/09/20 at 01:35; Status DC Lidocaine HCl (Lidocaine 1% 20ml Vial) 20 ml STK-MED ONCE .ROUTE ; Start 07/09/20 at 01:35; Stop 07/09/20 at 01:35; Status DC Heparin Sodium/ Sodium Chloride 1,000 ml @ As Directed STK-MED ONCE .ROUTE ; Start 07/09/20 at 01:35; Stop 07/09/20 at 01:36; Status DC Methylprednisolone Sodium Succinate (SOLU-Medrol 125MG VIAL) 125 mg STK-MED ONCE .ROUTE ; Start 07/09/20 at 01:54; Stop 07/09/20 at 01:54; Status DC Fentanyl Citrate (Fentanyl 2ml Vial) 100 mcg STK-MED ONCE .ROUTE ; Start 07/09/20 at 01:54; Stop 07/09/20 at 01:54; Status DC Midazolam HCl (Versed) 2 mg STK-MED ONCE .ROUTE ; Start 07/09/20 at 01:54; Stop 07/09/20 at 01:54; Status DC Famotidine (Pepcid Vial) 20 mg STK-MED ONCE .ROUTE ; Start 07/09/20 at 01:54; Stop 07/09/20 at 01:54; Status DC Diphenhydramine HCl (Benadryl) 50 mg STK-MED ONCE .ROUTE ; Start 07/09/20 at 01:54; Stop 07/09/20 at 01:55; Status DC Ondansetron HCl (Zofran) 4 mg PRN Q8HRS PRN IV NAUSEA/VOMITING 1ST CHOICE; Start 07/09/20 at 02:00; Stop 07/10/20 at 01:59; Status Cancel Fentanyl Citrate (Fentanyl 2ml Vial) 50 mcg PRN Q1HR PRN IV SEVERE PAIN 7-10; Start 07/09/20 at 02:00; Stop 07/09/20 at 03:37; Status DC Sodium Chloride 1,000 ml @ 75 mls/hr [id number] IV Last administered on 07/09/20at 02:00; Start 07/09/20 at 02:00; Stop 07/09/20 at 03:38; Status DC Acetaminophen (Tylenol) 650 mg PRN Q4HRS PRN PO FEVER > 100.3'F; Start 07/09/20 at 02:00; Stop 07/09/20 at 03:37; Status DC Nitroglycerin (Nitrostat) 0.4 mg PRN Q5MIN PRN SL CHEST PAIN Last administered on 07/09/20at 01:37; Start 07/09/20 at 02:00; Stop 07/09/20 at 03:38; Status DC Bivalirudin (Angiomax) 250 mg STK-MED ONCE IV ; Start 07/09/20 at 02:08; Stop 07/09/20 at 02:08; Status DC Iodixanol (Visipaque 320) 100 ml STK-MED ONCE .ROUTE ; Start 07/09/20 at 02:13; Stop 07/09/20 at 02:13; Status DC Heparin Sodium/ Sodium Chloride (HEPARIN for ARTERIAL LINE FLUSH) 1,000 unit 1X ONCE IART Last administered on 07/09/20at 02:32; Start 07/09/20 at 03:00; Stop 07/09/20 at 03:01; Status DC Heparin Sodium/ Sodium Chloride (HEPARIN for ARTERIAL LINE FLUSH) 1,000 unit 1X ONCE IART Last administered on 07/09/20at 02:30; Start 07/09/20 at 02:30; Stop 07/09/20 at 02:31; Status DC Midazolam HCl (Versed) 2 mg 1X ONCE IV Last administered on 07/09/20at 01:58; Start 07/09/20 at 02:30; Stop 07/09/20 at 02:31; Status DC Fentanyl Citrate (Fentanyl 2ml Vial) 100 mcg 1X ONCE IV Last administered on 07/09/20at 01:58; Start 07/09/20 at 02:30; Stop 07/09/20 at 02:31; Status DC Iodixanol (Visipaque 320) 100 ml 1X ONCE IART Last administered on 07/09/20at 02:50; Start 07/09/20 at 02:30; Stop 07/09/20 at 02:31; Status DC Bivalirudin (Angiomax) 250 mg 1X ONCE IV Last administered on 07/09/20at 02:11; Start 07/09/20 at 02:30; Stop 07/09/20 at 02:31; Status DC Lidocaine HCl (Lidocaine 1% 20ml Vial) 20 ml 1X ONCE INJ Last administered on 07/09/20at 01:57; Start 07/09/20 at 02:30; Stop 07/09/20 at 02:31; Status DC Diphenhydramine HCl (Benadryl) 50 mg 1X ONCE IVP Last administered on 07/09/20at 01:56; Start 07/09/20 at 02:30; Stop 07/09/20 at 02:31; Status DC Methylprednisolone Sodium Succinate (SOLU-Medrol 125MG VIAL) 125 mg 1X ONCE IV Last administered on 07/09/20at 01:56; Start 07/09/20 at 02:30; Stop 07/09/20 at 02:31; Status DC Famotidine (Pepcid Vial) 20 mg 1X ONCE IVP Last administered on 07/09/20at 01:56; Start 07/09/20 at 02:30; Stop 07/09/20 at 02:31; Status DC Iodixanol (Visipaque 320) 100 ml STK-MED ONCE .ROUTE ; Start 07/09/20 at 02:24; Stop 07/09/20 at 02:24; Status DC Iodixanol (Visipaque 320) 100 ml STK-MED ONCE .ROUTE ; Start 07/09/20 at 02:36; Stop 07/09/20 at 02:36; Status DC Ticagrelor (Brilinta) 90 mg STK-MED ONCE .ROUTE ; Start 07/09/20 at 02:45; Stop 07/09/20 at 02:45; Status DC Ticagrelor (Brilinta) 180 mg 1X ONCE PO Last administered on 07/09/20at 03:01; Start 07/09/20 at 03:30; Stop 07/09/20 at 03:31; Status DC Sodium Chloride (Normal Saline Flush) 3 ml QSHIFT PRN IV AFTER MEDS AND BLOOD DRAWS; Start 07/09/20 at 03:30 Sodium Chloride 1,000 ml @ 75 mls/hr [id number] IV Last administered on 07/09/20at 03:15; Start 07/09/20 at 04:00; Stop 07/09/20 at 16:19; Status DC Aspirin (Ecotrin) 81 mg DAILYWBKFT PO Last administered on 07/11/20at 08:39; Start 07/10/20 at 08:00 Ticagrelor (Brilinta) 90 mg BID PO Last administered on 07/11/20at 08:39; Start 07/10/20 at 09:00 Metoprolol Tartrate (Lopressor) 12.5 mg BID PO Last administered on 07/10/20at 08:50; Start 07/09/20 at 09:00; Stop 07/10/20 at 13:55; Status DC Lisinopril (Prinivil) 5 mg DAILY PO Last administered on 07/11/20at 08:40; Start 07/09/20 at 09:00 Atorvastatin Calcium (Lipitor) 20 mg QHS PO ; Start 07/09/20 at 21:00; Stop 07/09/20 at 07:17; Status DC Acetaminophen (Tylenol) 650 mg PRN Q6HRS PRN PO MILD PAIN / TEMP > 100.3'F; Start 07/09/20 at 03:30; Status Cancel Fentanyl Citrate (Fentanyl 2ml Vial) 50 mcg PRN Q1HR PRN IV MODERATE OR SEVERE PAIN; Start 07/09/20 at 03:30 Nitroglycerin (Nitrostat) 0.4 mg PRN Q5MIN PRN SL CHEST PAIN; Start 07/09/20 at 03:30 Amiodarone HCl 150 mg/Dextrose 103 ml @ 600 mls/hr 1X PRN PRN IV FOR VENTRICULAR TACHYCARDIA; Start 07/09/20 at 03:30 Lidocaine HCl (Lidocaine HCl 2% Abboject) 100 mg 1X PRN PRN IV FOR VENTRICULAR TACHYCARDIA; Start 07/09/20 at 03:30 Atropine Sulfate (ATROPINE 0.5mg SYRINGE) 0.5 mg PRN 1X PRN IV BRADYCARDIA; Start 07/09/20 at 03:30 Influenza Virus Vaccine Quadrival (Fluzone Quad [id number] Syringe) 0.5 ml ONCE ONCE VAX IM Last administered on 07/09/20at 10:38; Start 07/09/20 at 09:00; Stop 07/09/20 at 09:01; Status DC Atorvastatin Calcium (Lipitor) 40 mg QHS PO Last administered on 07/10/20at 21:00; Start 07/09/20 at 21:00 Ondansetron HCl (Zofran) 4 mg PRN Q6HRS PRN IVP NAUSEA/VOMITING; Start 07/09/20 at 07:30 Zolpidem Tartrate (Ambien) 5 mg PRN QHS PRN PO INSOMNIA, MAY REPEAT IN 1HR; Start 07/09/20 at 07:30 Morphine Sulfate (Morphine Sulfate) 2 mg PRN Q1HR PRN IV MILD PAIN 1-3; Start 07/09/20 at 07:30 Acetaminophen (Tylenol) 650 mg PRN Q6HRS PRN PO Headaches, Temp > 101.5F Last administered on 07/09/20at 17:04; Start 07/09/20 at 07:30 Magnesium Hydroxide (Milk Of Magnesia) 2,400 mg PRN Q12HR PRN PO CONSTIPATION; Start 07/09/20 at 07:30 Bisacodyl (Dulcolax Supp) 10 mg PRN DAILY PRN IA CONSTIPATION; Start 07/09/20 at 07:30 Heparin Sodium (Porcine) (Heparin Sodium) 5,000 unit Q12HR SQ Last administered on 07/10/20at 21:00; Start 07/09/20 at 09:00 Metoprolol Succinate (Toprol Xl) 25 mg DAILY PO Last administered on 07/11/20at 08:40; Start 07/11/20 at 09:00 Active Scripts Active Metoprolol Succinate ( Xl ) (Metoprolol Succinate) 25 Mg Tab.er.24h 1 Tab PO DAILY 30 Days Aspirin Ec (Aspirin) 81 Mg Tablet.dr 81 Mg PO DAILYWBKFT 30 Days Lisinopril 5 Mg Tablet 5 Mg PO DAILY 30 Days Nitrostat (Nitroglycerin) 0.4 Mg Tab.subl 0.4 Mg SL PRN Q5MIN PRN 30 Days Atorvastatin Calcium 40 Mg Tablet 40 Mg PO QHS 30 Days Brilinta (Ticagrelor) 90 Mg Tablet 90 Mg PO BID 30 Days Vitals/I & O Vital Sign - Last 24 Hours 07/10/20 07/10/20 07/10/20 07/10/20 14:34 19:00 21:02 22:44 Temp 98.2 99.0 98.2 98.2 99.0 98.2 Pulse 68 78 81 Resp 16 18 18 B/P (MAP) 106/77 (87) 109/61 (77) 128/75 (92) Pulse Ox 96 96 97 O2 Delivery Room Air Room Air Room Air Room Air 07/11/20 07/11/20 07/11/20 07/11/20 02:44 07:00 07:40 08:40 Temp 98.8 97.9 98.8 97.9 Pulse 79 86 79 Resp 16 18 B/P (MAP) 106/70 (82) 104/54 (71) 106/70 Pulse Ox 95 97 O2 Delivery Room Air Room Air Room Air 07/11/20 07/11/20 08:40 11:00 Temp 97.6 97.6 Pulse 79 76 Resp 18 B/P (MAP) 106/70 108/71 (83) Pulse Ox 97 O2 Delivery Room Air Intake and Output 07/10/20 07/10/20 07/11/20 15:00 23:00 07:00 Intake Total 240 ml 1040 ml 0 ml Output Total 100 ml Balance 240 ml 940 ml 0 ml Justifications for Admission Other Justification STEMI Nutrition Consultation Dietary Evaluation: Recommendations by RD: Dietary education by RD, Increase Calorie Intake, Protein supplementation Comments: REC continue cardiac diet per pt admit for [place] REC Ensure Enlive when PO intake <50% of meals to help meet pt goals RD available PRN for pt questions about TLC diet education [phone] Expected Outcomes/Goals: Pt to meet >75% needs PO Malnutrition Findings: Body Fat Depletion (Non Severe: Mild Depletion Weight Status: Appropriate PEDRO VILLANUEVA MD Jul 11, 2020 14:03
== END 2020-07-11 13:35 | disposition home or self-care (01) | DRG 246 ==
LOC: ER 01:19 → 1 WEST ICU 02:05 → 2 NORTH 14:56
PROVIDERS: ADMIT Internal Medicine; ATTEND Internal Medicine
PROC: B2111ZZ Fluoroscopy of Multiple Coronary Arteries using Low Osmolar Contrast (ICD-10-PCS; principal; 2020-07-09)
PROC: 027034Z Dilation of Coronary Artery, One Artery with Drug-eluting Intraluminal Device, Percutaneous Approach (ICD-10-PCS; 2020-07-09)
PROC: 4A023N7 Measurement of Cardiac Sampling and Pressure, Left Heart, Percutaneous Approach (ICD-10-PCS; 2020-07-09)
DX: I21.3 ST elevation (STEMI) myocardial infarction of unspecified site (principal); I50.23 Acute on chronic systolic (congestive) heart failure; I25.10 Atherosclerotic heart disease of native coronary artery without angina pectoris; Z98.61 Coronary angioplasty status; Z82.49 Family history of ischemic heart disease and other diseases of the circulatory system
CPT/HCPCS: 92941; 93454; 96374; 99285; G0269; 36415; 80048; 80053; 80061; 83735; 83880; 84484; 85025; 85610; 90471; 90686; 93005; 93306; 99152; 99153; C1725; C1760; C1769; C1874; C1887; C1892; J0583; J1200; J1644; J2250; J2930; J3010; J3490; J7030; Q9967; C1713; C1771; G0378

== ENCOUNTER → 2020-11-03 | Outpatient (CLI) | payer BC ==
[~2020-11-03] MED LIST: ASPI-886 PO; ATOR40TA59 PO; LISI-517 PO; METO-239 PO; NAPR220C4 PO; NITR0.4T24 SL; TICA90TA PO
--- NOTE | 2020-11-03 15:53 | CARD ---
MR#: [id number] Date of Study: 11/03/2020 Ordering Physician: PEDRO REYES, Referring Physician: PEDRO REYES, Tech: Tosha Ramirez [facility] APPROVED REPORT EXAM: Two-dimensional and M-mode echocardiogram with Doppler and color Doppler. Other Information Quality : GoodHR: 50bpm Rhythm : NSR INDICATION Hypertension/HCVD RISK FACTORS Hypertension 2D DIMENSIONS RVDd2.8 (2.9-3.5cm)Left Atrium(2D)3.0 (1.6-4.0cm) IVSd1.3 (0.7-1.1cm)Aortic Root(2D)3.2 (2.0-3.7cm) LVDd3.6 (3.9-5.9cm)LVOT Diameter1.9 (1.8-2.4cm) PWd1.1 (0.7-1.1cm)LVDs2.0 (2.5-4.0cm) FS (%) 43.6 %SV42.1 ml Aortic Valve AoV Peak Home.116.7cm/sAoV VTI28.3cm AO Peak GR.5.4mmHgLVOT Peak Home.112.8cm/s AO Mean GR.3mmHgAVA (VMAX)2.70cm2 Mitral Valve MV E Rkbeswro10.2cm/sMV DECEL [id number] MV A Lnkympqg34.1cm/sE/A Ratio1.9 Tricuspid Valve TR P. Ykbllgeb514gw/sTR Peak Gr.26mmHg LEFT VENTRICLE The left ventricle is normal size. There is borderline concentric left ventricular hypertrophy. The l eft ventricular systolic function is normal and the ejection fraction is within normal range. Estima christopher ejection fraction 55-60%. There is normal LV segmental wall motion. The left ventricular diastoli c function and filling is normal for age. RIGHT VENTRICLE The right ventricle is normal size. There is normal right ventricular wall thickness. The right ventr icular systolic function is normal. ATRIA The left atrium size is normal. The right atrium size is normal. The interatrial septum is intact wit h no evidence for an atrial septal defect or patent foramen ovale as noted on 2-D or Doppler imaging. AORTIC VALVE The aortic valve is normal in structure and function. Doppler and Color Flow revealed no significant aortic regurgitation. There is no significant aortic valvular stenosis. MITRAL VALVE The mitral valve is normal in structure and function. There is no evidence of mitral valve prolapse. There is no mitral valve stenosis. Doppler and Color-flow revealed mild mitral regurgitation. TRICUSPID VALVE The tricuspid valve is normal in structure and function. Doppler and Color Flow revealed mild tricusp id regurgitation. Estimated PAP 25 mmHg. There is no tricuspid valve stenosis. PULMONIC VALVE The pulmonary valve is normal in structure and function. Doppler and Color Flow revealed no pulmonic valvular regurgitation. GREAT VESSELS The aortic root is normal in size. The ascending aorta is normal in size. The pulmonary artery is nor mal. The IVC is normal in size and collapses >50% with inspiration. PERICARDIAL EFFUSION There is no evidence of significant pericardial effusion. Critical Notification Critical Value: No <Conclusion> The left ventricle is normal size. The left ventricular systolic function is normal and the ejection fraction is within normal range. Estimated ejection fraction 55-60%. There is borderline concentric left ventricular hypertrophy. Doppler and Color Flow revealed no significant aortic regurgitation. There is no significant aortic valvular stenosis. Doppler and Color-flow revealed mild mitral regurgitation. Doppler and Color Flow revealed mild tricuspid regurgitation. Estimated PAP 25 mmHg. Signed by : Pedro Reyes MD Electronically Approved : 11/03/2020 15:52:48
== END ==
LOC: ECHO 13:46
PROVIDERS: ATTEND Internal Medicine Cardiovascular Disease
DX: I08.1 Rheumatic disorders of both mitral and tricuspid valves (principal); I21.02 ST elevation (STEMI) myocardial infarction involving left anterior descending coronary artery
CPT/HCPCS: 93306